=== PATIENT | male | born 1985 | race American Indian/Alaskan Native ===

== ENCOUNTER 2017-11-01 00:52 | Inpatient (IN) | payer SELFPAY ==
[2017-11-01 01:39] LABS: Hematocrit 44.8 % (35.5-45.6); Hemoglobin 14.7 gm/dl (11.8-15.2); Mean Corpuscular HGB Conc 33 % (32-34); Mean Corpuscular Hemoglobin 32 pg (28-32); Mean Corpuscular Volume 98 fl (84-94); Platelet Count 234 K/mm3 (140-440); Red Blood Count 4.59 M/mm3 (3.65-5.03); Red Cell Distribution Width 12.7 % (13.2-15.2)
[2017-11-01 01:43] LABS: White Blood Count 21.3 K/mm3 (4.5-11.0)
[2017-11-01 01:47] LABS: Chloride 90.1 mmol/L (98-107); Potassium 5.4 mmol/L (3.6-5.0)
[2017-11-01 02:19] LABS: Basophils % (Manual) 0 % (0.0-1.8); Blastocytes % (Manual) 0 %; Diff Status Complete; Eosinophils % (Manual) 0 % (0.0-4.3); Macrocytosis Few; Platelet Estimate Consistent w Auto
[2017-11-01] MEDS ORDERED: NACL 0.9% 1000 ML 1,000 ML ONE (02:25)
[2017-11-01] MEDS ORDERED: NACL 0.9% 1000 ML 1,000 ML IV ONE ×2 (02:31→03:09)
[2017-11-01] MEDS ORDERED: D50W (25GM) Syringe IV PRN (03:09)
[2017-11-01] MEDS ORDERED: REGLAN ONE (03:11)
[2017-11-01 03:14] LABS: Bilirubin,Urine NEG (Negative); Blood,Urine NEG (Negative); Ketones,Urine 80 mg/dL (Negative); Leukocyte Esterase,Urine NEG (Negative); Mucus,Urine FEW /HPF; Nitrite,Urine NEG (Negative); Protein,Urine <15 mg/dL mg/dL (Negative); RBC,Urine < 1.0 /HPF (0.0-6.0); Urobilinogen,Urine < 2.0 mg/dL (<2.0); WBC,Urine < 1.0 /HPF (0.0-6.0)
--- NOTE | 2017-11-01 03:17 | Emergency Department Report ---
ED General Adult HPI - General Chief complaint: Hyperglycemia Stated complaint: CHEST PAIN / HIGH BLOOD SUGAR Time Seen by Provider: 11/01/17 03:04 Source: patient Mode of arrival: Ambulatory Limitations: No Limitations - History of Present Illness Initial comments: Patient is 32 years old male history of insulin-dependent diabetes presented today with hyperglycemia nausea and vomiting patient stated that he ran out of his insulin yesterday. He also complaining of chest pain and left-sided. He denied any shortness of breath or cough. No abdominal pain, no diarrhea. Patient denied any urinary symptoms. -: Gradual Consistency: constant - Related Data Allergies Allergy/AdvReac Type Severity Reaction Status Date / Time No Known Allergies Allergy Verified 11/01/17 01:05 ED Review of Systems ROS: Stated complaint: CHEST PAIN / HIGH BLOOD SUGAR Other details as noted in HPI Comment: All other systems reviewed and negative Constitutional: denies: chills, fever ENT: denies: ear pain, throat pain, dental pain, hearing loss Respiratory: denies: cough, orthopnea, shortness of breath, SOB with exertion, SOB at rest Cardiovascular: chest pain. denies: palpitations, dyspnea on exertion, orthopnea, edema, syncope, paroxysmal nocturnal dyspnea Gastrointestinal: nausea, vomiting. denies: abdominal pain, diarrhea, constipation, hematemesis, melena Genitourinary: denies: urgency, dysuria, hematuria Musculoskeletal: denies: back pain, joint swelling Neurological: denies: headache, weakness, numbness ED Past Medical Hx - Past Medical History Previous Medical History?: Yes Hx Diabetes: Yes - Surgical History Past Surgical History?: No - Social History Smoking Status: Never Smoker Substance Use Type: None ED Physical Exam - General Limitations: No Limitations General appearance: alert, in no apparent distress, other (patient is actively vomiting) - Head Head exam: Present: atraumatic, normocephalic, normal inspection - Eye Eye exam: Present: normal appearance, PERRL - ENT ENT exam: Present: mucous membranes dry - Neck Neck exam: Present: normal inspection, full ROM. Absent: tenderness, meningismus, lymphadenopathy, thyromegaly - Respiratory Respiratory exam: Present: normal lung sounds bilaterally. Absent: respiratory distress, wheezes, rales, rhonchi, stridor, chest wall tenderness, accessory muscle use, decreased breath sounds, prolonged expiratory - Cardiovascular Cardiovascular Exam: Present: tachycardia, normal heart sounds - GI/Abdominal GI/Abdominal exam: Present: soft, normal bowel sounds. Absent: distended, tenderness, guarding, rebound, rigid, organomegaly, mass, bruit, pulsatile mass , hernia - Back Exam Back exam: Present: normal inspection. Absent: tenderness, CVA tenderness (R), CVA tenderness (L) - Neurological Exam Neurological exam: Present: alert, oriented X3, CN II-XII intact, normal gait, reflexes normal - Skin Skin exam: Present: warm, dry, intact ED Course Vital Signs 11/01/17 11/01/17 11/01/17 00:56 01:00 01:48 Temperature 98.3 F 98.3 F 98.8 F Pulse Rate 109 H 108 H 98 H Respiratory 20 20 16 Rate Blood Pressure 115/86 115/86 Blood Pressure 134/77 [Left] O2 Sat by Pulse 100 97 99 Oximetry 11/01/17 11/01/17 11/01/17 02:00 02:15 02:31 Temperature Pulse Rate 101 H 87 108 H Respiratory 17 18 19 Rate Blood Pressure 121/75 134/77 140/68 Blood Pressure [Left] O2 Sat by Pulse 98 100 Oximetry 11/01/17 11/01/17 11/01/17 02:45 03:00 03:15 Temperature Pulse Rate 101 H 100 H 105 H Respiratory 18 18 16 Rate Blood Pressure 140/68 123/69 123/69 Blood Pressure [Left] O2 Sat by Pulse 100 100 100 Oximetry 11/01/17 11/01/17 11/01/17 03:31 03:45 04:00 Temperature Pulse Rate 112 H 111 H 105 H Respiratory 22 20 16 Rate Blood Pressure 123/69 123/69 124/61 Blood Pressure [Left] O2 Sat by Pulse 99 100 100 Oximetry 11/01/17 11/01/17 11/01/17 04:15 04:30 04:31 Temperature Pulse Rate 108 H 104 H Respiratory 15 20 17 Rate Blood Pressure 124/61 124/61 Blood Pressure [Left] O2 Sat by Pulse 100 100 99 Oximetry ED Medical Decision Making - Lab Data Result diagrams: 11/01/17 01:19 11/01/17 01:19 - EKG Data -: EKG Interpreted by Mi EKG shows normal: sinus rhythm Rate: tachycardia - EKG Data Interpretation: no acute changes - Radiology Data Radiology results: report reviewed Chest x-ray showed no acute finding. - Medical Decision Making Discussed with Dr. Janice Cole, I presented the patient to her, she agreed to admit the patient to her service. Critical Care Time: Yes Critical care time in (mins) excluding proc time.: 45 Critical care attestation.: If time is entered above; I have spent that time in minutes in the direct care of this critically ill patient, excluding procedure time. ED Disposition Clinical Impression: DKA, type 1, Intractable vomiting, Chest pain Disposition: OP ADMIT IP TO THIS HOSP Is pt being admited?: Yes Condition: Stable Instructions: Diabetic Ketoacidosis (ED), Chest Pain (ED)
[2017-11-01] MEDS ORDERED: REGLAN IV ONE (03:19)
[2017-11-01] MEDS ORDERED: ZOSYN/NS 4.5GM/100ML 4.5 GM/100 ML VIAL IV ONE (03:30)
[2017-11-01] MEDS: NovoLIN R 100 UNITS in NACL 0.9% 99 ML IV SCH (03:52)
--- NOTE | 2017-11-01 04:20 | XRay Report ---
FINAL REPORT PROCEDURE: XR CHEST 1V AP TECHNIQUE: Chest radiograph anteroposterior view. CPT 22552 HISTORY: chest pain COMPARISON: No prior studies are available for comparison. FINDINGS: Heart: Normal. Mediastinum/Vessels: Normal. Lungs/Pleural space: Lungs are clear and expanded. There are no infiltrates, effusions or pneumothoraces.. Bony thorax: No acute osseous abnormality. Life support devices: None. IMPRESSION: No acute cardiopulmonary abnormality.
[2017-11-01] MEDS ORDERED: ZOFRAN IV PRN (05:34)
[2017-11-01] MEDS ORDERED: TYLENOL PO PRN (05:34)
[2017-11-01] MEDS ORDERED: MILK OF MAGNESIA PO PRN (05:34)
[2017-11-01] MEDS ORDERED: DULCOLAX PR PRN (05:34)
--- NOTE | 2017-11-01 05:43 | History and Physical Report ---
History of Present Illness Date of examination: 11/01/17 History of present illness: 32 year old man with history of diabetes comes to emergency room with complaints of nausea, vomiting, generalized weakness. He ran out of his insulin. Also complaining of abdominal pain, lower quadrants, tightness, intermittent every 100 minutes, intensity 5/10, no radiation,cannot identidfy relieving or exacerbating factors. Review Of Systems: Constitutional: no weight loss Ears, eyes, nose, mouth and throat: no nasal congestion, no nasal discharge, no sinus pressure, blurry vision, diplopia Neck: No neck pain or rigidity. Cardiovascular: No chest pain, palpitations Respiratory: No shortness of breath, cough Gastrointestinal: No hematochezia Genitourinary : no dysuria, frequency , hematuria Musculoskeletal: no muscle ache Integumentary: no rash, no pruritis Neurological: no parathesias, focal weakness Endocrine: no cold or heat intolerance, no polyuria or polydipsia Hematologic/Lymphatic: no easy bruising, no easy bleeding, no gland swelling Allergic/Immunologic: no urticaria, no angioedema. PAST MEDICAL HISTORY: Diabetes PAST SURGICAL HISTORY: none FAMILY HISTORY:diabetes SOCIAL HISTORY:no alcohol, tobacco, alcohol or drugs Medications and Allergies Allergies Allergy/AdvReac Type Severity Reaction Status Date / Time No Known Allergies Allergy Verified 11/01/17 01:05 Home Medications Medication Instructions Recorded Confirmed Last Taken Type Insulin Aspart [NovoLOG Flexpen] 1 dose SQ AC PRN #1 pen 11/05/17 Unknown Rx Insulin Detemir [Levemir] 8 units SUB-Q QHS #30 day 11/05/17 Unknown Rx Active Meds: Active Medications Acetaminophen (Tylenol) 650 mg PO Q4H PRN PRN Reason: Pain MILD(1-3)/Fever >100.5/[place]ACKSON Bisacodyl (Dulcolax) 10 mg MA QDAY PRN PRN Reason: Constipation unrelieved by MOM Dextrose (D50w (25gm) Syringe) 0 ml IV PRN PRN PRN Reason: Hypoglycemia Enoxaparin Sodium (Lovenox) 30 mg SUB-Q QDAY JULIOCESAR Insulin Human Regular 100 (units/ Sodium Chloride) 100 mls @ 1 mls/hr IV TITR JULIOCESAR; 1 UNITS/HR PRN Reason: Protocol Last Titration: 11/01/17 04:58 Dose: 8 units/hr, 8 mls/hr Dextrose/Sodium Chloride (D5/0.45ns) 1,000 mls @ 150 mls/hr IV DIRECT JULIOCESAR Sodium Chloride (Nacl 0.9% 1000 Ml) 1,000 mls @ 150 mls/hr IV DIRECT JULIOCES[facility] Magnesium Hydroxide (Milk Of Magnesia) 30 ml PO Q4H PRN PRN Reason: Constipation Ondansetron HCl (Zofran) 4 mg IV Q4H PRN PRN Reason: N/V unrelieved by Reglan Exam - Physical Exam Narrative exam: Gen. appearance: Patient lying in bed in no acute distress HEENT: Normocephalic/atraumatic, pupils equal round reactive to light, extra occular movement intact, no scleral icterus, no JVD or thyromegaly or nodule, neck is supple, mucous membrane moist, no erythema or exudate Heart: S1-S2, regular rate and rhythm Lungs: Clear to auscultation bilateral breathing comfortable Abdomen: Positive bowel sounds, nontender, nondistended, no organomegaly Extremities: No edema, cyanosis, clubbing Neuro:: Oriented 3 , cranial nerves II-12 intact, speech, motor intact Skin: No rash, nodules, warm dry - Constitutional Vitals: Temp Pulse Resp BP Pulse Ox 98.8 F 104 H 17 124/61 99 11/01/17 01:48 11/01/17 04:31 11/01/17 04:31 11/01/17 04:31 11/01/17 04:31 Results - Labs CBC & Chem 7: 11/05/17 04:12 11/05/17 04:12 Labs: Abnormal lab results 11/01/17 11/01/17 11/01/17 Range/Units 01:07 01:19 01:19 WBC 21.3 H (4.5-11.0) K/mm3 MCV 98 H (84-94) fl RDW 12.7 L (13.2-15.2) % Seg Neuts % (Manual) 88.0 H (40.0-70.0) % Lymphocytes % (Manual) 7.0 L (13.4-35.0) % Seg Neutrophils # Man 18.7 H (1.8-7.7) K/mm3 Monocytes # (Manual) 1.1 H (0.0-0.8) K/mm3 VBG pH (7.320-7.420) Potassium 5.4 H (3.6-5.0) mmol/L Chloride 90.1 L (98-107) mmol/L Carbon Dioxide 10 L (22-30) mmol/L BUN 24 H (9-20) mg/dL Creatinine 1.6 H (0.8-1.5) mg/dL Glucose 494 H (75-100) mg/dL POC Glucose 425 H (70-105) 11/01/17 11/01/17 Range/Units 01:19 02:19 WBC (4.5-11.0) K/mm3 MCV (84-94) fl RDW (13.2-15.2) % Seg Neuts % (Manual) (40.0-70.0) % Lymphocytes % (Manual) (13.4-35.0) % Seg Neutrophils # Man (1.8-7.7) K/mm3 Monocytes # (Manual) (0.0-0.8) K/mm3 VBG pH 7.230 L (7.320-7.420) Potassium (3.6-5.0) mmol/L Chloride (98-107) mmol/L Carbon Dioxide (22-30) mmol/L BUN (9-20) mg/dL Creatinine (0.8-1.5) mg/dL Glucose (75-100) mg/dL POC Glucose 458 H (70-105) - Imaging and Cardiology Chest x-ray: image reviewed Assessment and Plan Assessment DKA Abdominal pain SIRS Dehydration Plan Admit to medicine Start IV fluids, insulin drip check fingersticks, serial chemistry Check CT abdomen, consult critical care DVT prophalaxis
[2017-11-01 05:57] LABS: Calcium 8.9 mg/dL (8.4-10.2); Chloride 96.4 mmol/L (98-107); Magnesium 2.1 mg/dL (1.7-2.3); Phosphorous 5.1 mg/dL (2.5-4.5)
[2017-11-01] MEDS ORDERED: D5/0.45NS 1,000 ML IV SCH (06:00)
[2017-11-01] MEDS ORDERED: NACL 0.9% 1000 ML 1,000 ML IV SCH (06:00)
[2017-11-01 06:24] LABS: Potassium 6.4 mmol/L (3.6-5.0)
[2017-11-01] MEDS ORDERED: SODIUM BICARBONATE IV ONE ×2 (06:29→06:31)
[2017-11-01] MEDS ORDERED: CALCIUM CHLORIDE 1,000 MG in NACL 0.9% 100 ML IV ONE (06:29)
--- NOTE | 2017-11-01 06:36 | Cat Scan Report ---
FINAL REPORT PROCEDURE: CT ABDOMEN PELVIS WO CON TECHNIQUE: Computerized axial tomography of the abdomen and pelvis was performed without intravenous contrast. This study is performed without intravascular contrast material and its sensitivity for abdominal and pelvic pathology, including neoplasms, inflammation, abscess, free fluid, thrombosis, arterial dissection and infarction, is reduced compared with a contrast enhanced study. HISTORY: abd pain COMPARISON: No prior studies are available for comparison. FINDINGS: Visualized lower thorax: No significant abnormality. Liver: Normal size and attenuation. Spleen: Normal size and attenuation. Gallbladder and biliary system: Normal. Pancreas: Normal. Adrenals: Normal. Kidneys: There are no kidney stones or ureteral stones. There is no hydronephrosis.. GI tract: There is no bowel obstruction, colitis or enteritis. The appendix is normal.. Lymph nodes and mesentery: Normal. Vasculature: Normal. Bladder: Normal. Reproductive organs: Normal. Peritoneum: There is no ascites, free air, abscess or adenopathy.. Musculoskeletal structures: No significant abnormality. Other: None. IMPRESSION: There is no acute intra-abdominal abnormality..
[2017-11-01 08:13] LABS: BUN/Creatinine Ratio 16; Blood Urea Nitrogen 26 mg/dL (9-20); Calcium 8.7 mg/dL (8.4-10.2); Chloride 103.6 mmol/L (98-107); Glucose 285 mg/dL (75-100); Potassium 4.8 mmol/L (3.6-5.0); Sodium 146 mmol/L (137-145)
[2017-11-01 08:26] LABS: Anion Gap 30 mmol/L; Carbon Dioxide 17 mmol/L (22-30)
[2017-11-01 09:47] LABS: Anion Gap 28 mmol/L; BUN/Creatinine Ratio 16; Blood Urea Nitrogen 25 mg/dL (9-20); Calcium 9.5 mg/dL (8.4-10.2); Carbon Dioxide 17 mmol/L (22-30); Chloride 105.1 mmol/L (98-107); Glucose 243 mg/dL (75-100); Potassium 4.5 mmol/L (3.6-5.0); Sodium 146 mmol/L (137-145)
[2017-11-01] MEDS: LOVENOX SUB-Q SCH (10:15)
[2017-11-01] MEDS: NACL 0.45% 1000 ML 1,000 ML IV SCH (12:15)
[2017-11-01 12:49] LABS: Anion Gap 33 mmol/L; BUN/Creatinine Ratio 16; Blood Urea Nitrogen 25 mg/dL (9-20); Calcium 9.6 mg/dL (8.4-10.2); Carbon Dioxide 16 mmol/L (22-30); Chloride 103.1 mmol/L (98-107); Glucose 220 mg/dL (75-100); Potassium 4.7 mmol/L (3.6-5.0); Sodium 147 mmol/L (137-145)
[2017-11-01] MEDS: NOVOLOG SUB-Q SCH (16:50)
--- NOTE | 2017-11-01 17:01 | Progress Note ---
Assessment and Plan Assessment and plan: 32-year-old male with past medical history of diabetes. As per his he has been acting strange recently. He has been secretive, paranoid and appears to be delusional. For one he told that he fills his insulin [id number] at [facility]. He has been using insulin. When his checked his insulin and it was an empty bottle. His is a chiropractor and she is aware that it is not Possible to get insulin without a Rx. He Claims Has Not Seen a Doctor for a Long Time and Does Not Have Any Prescriptions. . He Then Says He Is on a Holy mission, and Refusing to Eat, and God Has Been Telling Him Not to Eat, He Will Only Eat after the Voice from God Has tells Him to Do so. His States That He Has No Real Mental Health History , but that Mental Health Issues Run Strongly in His Family. Especially His Mother. Psychotic Episode 1013 and mental health consults Acute kidney injury/vasomotor nephropathy Continue IV fluids, should improve with insulin and IV fluids. DKA Continue insulin drip, keep in ICU, we'll not transitioned to subcutaneous until patient is able to eat. Metabolic Acidosis Due to DKA and starvation ketoacidosis and LA Hypernatremia continue 1/2NS Dehydration cotninue IVF Mixed Acidosis also due to Lactic acidosis infection workup is negative, continue IVF Metabolic encephalopathy Was due to DKA, appears to be resolving now. Now patient appears to be quite psychotic. He is threatening to sign out AMA leave the hospital. Therefore put him on 1013. The high probability of a clinically significant, sudden or life threatening deterioration of the [endocrine, renal ] system(s) required my full and direct attention, intervention and personal management. The aggregate critical care time was [] minutes. This time is in addition to time spent performing reported procedures but includes the following: [] Data Review and interpretation [] Patient assessment and monitoring of vital signs [] Documentation [] Medication orders and management History Interval history: Patient refusing to eat, he is erratic, delusional and paranoid. Per the patient as he feels perfectly fine. And he states he will not answer to sinus answering only to a higher power Constitutional: No fevers, no malaise, no joint pains CVS: No chest pain, no orthopnea, no dyspnea on exertion, no pedal edema GI: No abdominal pain, no diarrhea, no vomiting, no constipation Respiratory: No shortness of breath, no wheezing, no coughing Hospitalist Physical - Constitutional Vitals: Temp Pulse Resp BP Pulse Ox 97.4 F L 97 H 14 121/64 95 11/01/17 08:11 11/01/17 12:00 11/01/17 12:00 11/01/17 12:00 11/01/17 12:00 General appearance: Present: no acute distress - EENT Eyes: Present: PERRL, EOM intact ENT: hearing intact, clear oral mucosa - Neck Neck: Present: supple, normal ROM - Respiratory Respiratory effort: normal Respiratory: bilateral: CTA - Cardiovascular Rhythm: regular Heart Sounds: Present: S1 & S2 - Extremities Extremities: no ischemia Peripheral Pulses: within normal limits - Abdominal General gastrointestinal: soft, non-tender, normal bowel sounds - Integumentary Integumentary: Present: clear, warm, dry - Psychiatric Psychiatric: no appropriate mood/affect, no intact judgment & insight, other ( disorganized speech and behavior) - Neurologic Neurologic: CNII-XII intact, focal deficits Results - Labs CBC & Chem 7: 11/01/17 01:19 11/01/17 11:12 Labs: Laboratory Last Values WBC 21.3 K/mm3 (4.5-11.0) H 11/01/17 01:19 RBC 4.59 M/mm3 (3.65-5.03) 11/01/17 01:19 Hgb 14.7 gm/dl (11.8-15.2) 11/01/17 01:19 Hct 44.8 % (35.5-45.6) 11/01/17 01:19 MCV 98 fl (84-94) H 11/01/17 01:19 MCH 32 pg (28-32) 11/01/17 01:19 MCHC 33 % (32-34) 11/01/17 01:19 RDW 12.7 % (13.2-15.2) L 11/01/17 01:19 Plt Count 234 K/mm3 (140-440) 11/01/17 01:19 Add Manual Diff Complete 11/01/17 01:19 Total Counted 100 11/01/17 01:19 Seg Neuts % (Manual) 88.0 % (40.0-70.0) H 11/01/17 01:19 Band Neutrophils % 0 % 11/01/17 01:19 Lymphocytes % (Manual) 7.0 % (13.4-35.0) L 11/01/17 01:19 Reactive Lymphs % (Man) 0 % 11/01/17 01:19 Monocytes % (Manual) 5.0 % (0.0-7.3) 11/01/17 01:19 Eosinophils % (Manual) 0 % (0.0-4.3) 11/01/17 01:19 Basophils % (Manual) 0 % (0.0-1.8) 11/01/17 01:19 Metamyelocytes % 0 % 11/01/17 01:19 Myelocytes % 0 % 11/01/17 01:19 Promyelocytes % 0 % 11/01/17 01:19 Blast Cells % 0 % 11/01/17 01:19 Nucleated RBC % Not Reportable 11/01/17 01:19 Seg Neutrophils # Man 18.7 K/mm3 (1.8-7.7) H 11/01/17 01:19 Band Neutrophils # 0.0 K/mm3 11/01/17 01:19 Lymphocytes # (Manual) 1.5 K/mm3 (1.2-5.4) 11/01/17 01:19 Abs React Lymphs (Man) 0.0 K/mm3 11/01/17 01:19 Monocytes # (Manual) 1.1 K/mm3 (0.0-0.8) H 11/01/17 01:19 Eosinophils # (Manual) 0.0 K/mm3 (0.0-0.4) 11/01/17 01:19 Basophils # (Manual) 0.0 K/mm3 (0.0-0.1) 11/01/17 01:19 Metamyelocytes # 0.0 K/mm3 11/01/17 01:19 Myelocytes # 0.0 K/mm3 11/01/17 01:19 Promyelocytes # 0.0 K/mm3 11/01/17 01:19 Blast Cells # 0.0 K/mm3 11/01/17 01:19 WBC Morphology Not Reportable 11/01/17 01:19 Hypersegmented Neuts Not Reportable 11/01/17 01:19 Hyposegmented Neuts Not Reportable 11/01/17 01:19 Hypogranular Neuts Not Reportable 11/01/17 01:19 Smudge Cells Not Reportable 11/01/17 01:19 Toxic Granulation Not Reportable 11/01/17 01:19 Toxic Vacuolation Not Reportable 11/01/17 01:19 Dohle Bodies Not Reportable 11/01/17 01:19 Pelger-Huet Anomaly Not Reportable 11/01/17 01:19 Rick Rods Not Reportable 11/01/17 01:19 Platelet Estimate Consistent w auto 11/01/17 01:19 Clumped Platelets Not Reportable 11/01/17 01:19 Plt Clumps, EDTA Not Reportable 11/01/17 01:19 Large Platelets Not Reportable 11/01/17 01:19 Giant Platelets Not Reportable 11/01/17 01:19 Platelet Satelliting Not Reportable 11/01/17 01:19 Plt Morphology Comment Not Reportable 11/01/17 01:19 RBC Morphology Not Reportable 11/01/17 01:19 Dimorphic RBCs Not Reportable 11/01/17 01:19 Polychromasia Not Reportable 11/01/17 01:19 Hypochromasia Not Reportable 11/01/17 01:19 Poikilocytosis Not Reportable 11/01/17 01:19 Anisocytosis Not Reportable 11/01/17 01:19 Microcytosis Not Reportable 11/01/17 01:19 Macrocytosis Few 11/01/17 01:19 Spherocytes Not Reportable 11/01/17 01:19 Pappenheimer Bodies Not Reportable 11/01/17 01:19 Sickle Cells Not Reportable 11/01/17 01:19 Target Cells Not Reportable 11/01/17 01:19 Tear Drop Cells Not Reportable 11/01/17 01:19 Ovalocytes Not Reportable 11/01/17 01:19 Helmet Cells Not Reportable 11/01/17 01:19 [place] Bodies Not Reportable 11/01/17 01:19 [place] Rings Not Reportable 11/01/17 01:19 [place] Cells Not Reportable 11/01/17 01:19 Bite Cells Not Reportable 11/01/17 01:19 Crenated Cell Not Reportable 11/01/17 01:19 Elliptocytes Not Reportable 11/01/17 01:19 Acanthocytes (Spur) Not Reportable 11/01/17 01:19 Rouleaux Not Reportable 11/01/17 01:19 Hemoglobin C Crystals Not Reportable 11/01/17 01:19 Schistocytes Not Reportable 11/01/17 01:19 Malaria parasites Not Reportable 11/01/17 01:19 Gaurang Bodies Not Reportable 11/01/17 01:19 Hem Pathologist Commnt No 11/01/17 01:19 VBG pH 7.230 (7.320-7.420) L 11/01/17 01:19 Sodium 147 mmol/L (137-145) H 11/01/17 11:12 Potassium 4.7 mmol/L (3.6-5.0) 11/01/17 11:12 Chloride 103.1 mmol/L (98-107) 11/01/17 11:12 Carbon Dioxide 16 mmol/L (22-30) L 11/01/17 11:12 Anion Gap 33 mmol/L 11/01/17 11:12 BUN 25 mg/dL (9-20) H 11/01/17 11:12 Creatinine 1.6 mg/dL (0.8-1.5) H 11/01/17 11:12 Estimated GFR > 60 ml/min 11/01/17 11:12 BUN/Creatinine Ratio 16 % 11/01/17 11:12 Glucose 220 mg/dL (75-100) H 11/01/17 11:12 POC Glucose 159 (70-105) H 11/01/17 15:59 Hemoglobin A1c 9.0 % (4-6) H 11/01/17 07:26 Lactic Acid 3.90 mmol/L (0.7-2.0) H* 11/01/17 05:05 Calcium 9.6 mg/dL (8.4-10.2) 11/01/17 11:12 Phosphorus 5.10 mg/dL (2.5-4.5) H 11/01/17 05:05 Magnesium 2.10 mg/dL (1.7-2.3) 11/01/17 05:05 Troponin T < 0.010 ng/mL (0.00-0.029) 11/01/17 05:05 Urine Color Straw (Yellow) 11/01/17 02:50 Urine Turbidity Clear (Clear) 11/01/17 02:50 Urine pH 5.0 (5.0-7.0) 11/01/17 02:50 Ur Specific [place] 1.013 (1.003-1.030) 11/01/17 02:50 Urine Protein <15 mg/dl mg/dL (Negative) 11/01/17 02:50 Urine Glucose (UA) >=500 mg/dL (Negative) 11/01/17 02:50 Urine Ketones 80 mg/dL (Negative) 11/01/17 02:50 Urine Blood Neg (Negative) 11/01/17 02:50 Urine Nitrite Neg (Negative) 11/01/17 02:50 Urine Bilirubin Neg (Negative) 11/01/17 02:50 Urine Urobilinogen < 2.0 mg/dL (<2.0) 11/01/17 02:50 Ur Leukocyte Esterase Neg (Negative) 11/01/17 02:50 Urine WBC (Auto) < 1.0 /HPF (0.0-6.0) 11/01/17 02:50 Urine RBC (Auto) < 1.0 /HPF (0.0-6.0) 11/01/17 02:50 Urine Mucus Few /HPF 11/01/17 02:50
[2017-11-01] MEDS ORDERED: NOVOLOG SUB-Q SCH (22:00)
[2017-11-01 23:57] LABS: BUN/Creatinine Ratio 13; Blood Urea Nitrogen 17 mg/dL (9-20); Carbon Dioxide 23 mmol/L (22-30); Chloride 103.3 mmol/L (98-107); Glucose 91 mg/dL (75-100); Potassium 3.8 mmol/L (3.6-5.0); Sodium 141 mmol/L (137-145)
[2017-11-02 00:04] LABS: Anion Gap 19 mmol/L
[2017-11-02 04:29] LABS: Anion Gap 27 mmol/L; BUN/Creatinine Ratio 11; Blood Urea Nitrogen 16 mg/dL (9-20); Calcium 8.9 mg/dL (8.4-10.2); Carbon Dioxide 18 mmol/L (22-30); Chloride 101.5 mmol/L (98-107); Glucose 199 mg/dL (75-100); Potassium 4.4 mmol/L (3.6-5.0); Sodium 142 mmol/L (137-145)
[2017-11-02] MEDS: NOVOLOG SUB-Q SCH (08:36)
[2017-11-02] MEDS: NACL 0.45% 1000 ML 1,000 ML IV SCH (09:23)
[2017-11-02] MEDS: LOVENOX SUB-Q SCH (09:24)
--- NOTE | 2017-11-02 11:17 | Consultation ---
History of Present Illness - Reason for Consult Consult date: 11/02/17 DKA Requesting physician: BARBARA WALSH - History of Present Illness 32 y/o male admitted with nausea and vomiting found to be in DKA. Past History Past Medical History: diabetes Past Surgical History: No surgical history Social history: no significant social history Medications and Allergies Allergies Allergy/AdvReac Type Severity Reaction Status Date / Time No Known Allergies Allergy Verified 11/01/17 01:05 Home Medications Medication Instructions Recorded Confirmed Last Taken Type No Known Home Medications [No 11/01/17 11/01/17 Unknown History Reported Home Medications] Active Meds: Active Medications Acetaminophen (Tylenol) 650 mg PO Q4H PRN PRN Reason: Pain MILD(1-3)/Fever >100.5/JACKSON Bisacodyl (Dulcolax) 10 mg [place] QDAY PRN PRN Reason: Constipation unrelieved by MOM Dextrose (D50w (25gm) Syringe) 0 ml IV PRN PRN PRN Reason: Hypoglycemia Enoxaparin Sodium (Lovenox) 40 mg SUB-Q QDAY [facility] Last Admin: 11/02/17 09:24 Dose: 40 mg Dextrose (D5w) 1,000 mls @ 125 mls/hr IV DIRECT [facility] Influenza Virus Vaccine Quadrival (Fluarix Quad [id number](36 Mos+) 0.5 ml IM .ONCE ONE Stop: 11/02/17 12:01 Magnesium Hydroxide (Milk Of Magnesia) 30 ml PO Q4H PRN PRN Reason: Constipation Ondansetron HCl (Zofran) 4 mg IV Q4H PRN PRN Reason: N/V unrelieved by Reglan Review of Systems All systems: negative Exam - Constitutional Vitals: Temp Pulse Resp BP Pulse Ox 98.6 F 108 H 13 110/57 96 11/02/17 00:00 11/02/17 09:00 11/02/17 09:00 11/02/17 09:00 11/02/17 09:00 General appearance: Present: no acute distress - EENT Eyes: Present: PERRL, EOM intact ENT: hearing intact, clear oral mucosa - Neck Neck: Present: supple, normal ROM - Respiratory Respiratory effort: normal Respiratory: bilateral: CTA - Cardiovascular Rhythm: regular (tachycardic) Heart Sounds: Present: S1 & S2 - Extremities Extremities: no ischemia Peripheral Pulses: within normal limits - Abdominal General gastrointestinal: Present: soft, non-tender, normal bowel sounds Results - Labs CBC & Chem 7: 11/03/17 04:14 11/03/17 04:14 Labs: Abnormal lab results 11/01/17 11/01/17 11/01/17 Range/Units 11:10 11:12 11:44 Sodium 147 H (137-145) mmol/L Carbon Dioxide 16 L (22-30) mmol/L BUN 25 H (9-20) mg/dL Creatinine 1.6 H (0.8-1.5) mg/dL Glucose 220 H (75-100) mg/dL POC Glucose 193 H 191 H (70-105) 11/01/17 11/01/17 11/01/17 Range/Units 12:51 13:45 14:58 Sodium (137-145) mmol/L Carbon Dioxide (22-30) mmol/L BUN (9-20) mg/dL Creatinine (0.8-1.5) mg/dL Glucose (75-100) mg/dL POC Glucose 196 H 231 H 210 H (70-105) 11/01/17 11/01/17 11/01/17 Range/Units 15:59 17:55 19:15 Sodium (137-145) mmol/L Carbon Dioxide (22-30) mmol/L BUN (9-20) mg/dL Creatinine (0.8-1.5) mg/dL Glucose (75-100) mg/dL POC Glucose 159 H 127 H 129 H (70-105) 11/01/17 11/02/17 11/02/17 Range/Units 21:15 00:02 01:17 Sodium (137-145) mmol/L Carbon Dioxide (22-30) mmol/L BUN (9-20) mg/dL Creatinine (0.8-1.5) mg/dL Glucose (75-100) mg/dL POC Glucose 150 H 62 L 125 H (70-105) 11/02/17 11/02/17 11/02/17 Range/Units 03:07 03:21 04:05 Sodium (137-145) mmol/L Carbon Dioxide 18 L (22-30) mmol/L BUN (9-20) mg/dL Creatinine (0.8-1.5) mg/dL Glucose 199 H (75-100) mg/dL POC Glucose 171 H 226 H (70-105) 11/02/17 11/02/17 Range/Units 06:15 07:39 Sodium (137-145) mmol/L Carbon Dioxide (22-30) mmol/L BUN (9-20) mg/dL Creatinine (0.8-1.5) mg/dL Glucose (75-100) mg/dL POC Glucose 217 H 276 H (70-105) - Imaging and Cardiology Chest x-ray: image reviewed (clear) Assessment and Plan 32 y/o male with DKA, secondary to noncompliance 1. NPO 2. Insulin drip 3. Q1hr FSBS 4. Q6hour BMP's CCT 31 minutes.
[2017-11-02] MEDS: D5W 1,000 ML IV SCH (11:19)
[2017-11-02] MEDS: NovoLIN R 100 UNITS in NACL 0.9% 99 ML IV SCH (11:25)
[2017-11-02 11:37] LABS: Anion Gap 30 mmol/L; BUN/Creatinine Ratio 11; Blood Urea Nitrogen 17 mg/dL (9-20); Calcium 8.4 mg/dL (8.4-10.2); Carbon Dioxide 15 mmol/L (22-30); Chloride 98.4 mmol/L (98-107); Glucose 338 mg/dL (75-100); Potassium 4.4 mmol/L (3.6-5.0); Sodium 139 mmol/L (137-145)
[2017-11-02] MEDS ORDERED: Fluarix Quad 2017-2018(36 MOS+ IM ONE (12:00)
[2017-11-02] MEDS ORDERED: NovoLIN R 100 UNITS in NACL 0.9% 99 ML IV SCH (12:00)
--- NOTE | 2017-11-02 17:48 | Progress Note ---
Assessment and Plan Assessment and plan: Patient is a 32-year-old man with past medical history of DM who presents with AMS/paranoid/delusional. Psychotic Episode 1013 and mental health consults Acute kidney injury/vasomotor nephropathy Continue IV fluids, should improve with insulin and IV fluids. DKA Continue insulin drip, keep in ICU, we'll not transitioned to subcutaneous until patient is able to eat. Metabolic Acidosis Due to DKA and starvation ketoacidosis and LA Hypernatremia continue 1/2NS Dehydration cotninue IVF Mixed Acidosis also due to Lactic acidosis infection workup is negative, continue IVF Metabolic encephalopathy Was due to DKA, appears to be resolving now. Now patient appears to be quite psychotic. He is threatening to sign out AMA leave the hospital, so he was placed under 1013. unfortunately, no drug screen/toxicology screen was done on admission. The high probability of a clinically significant, sudden or life threatening deterioration of the [neurologic,cardiac] system(s) required my full and direct attention, intervention and personal management. The aggregate critical care time was [32] minutes. This time is in addition to time spent performing reported procedures but includes the following: [x] Data Review and interpretation [x] Patient assessment and monitoring of vital signs [x] Documentation [x] Medication orders and management Hospitalist Physical - Constitutional Vitals: Temp Pulse Resp BP Pulse Ox 98.6 F 84 14 103/55 99 11/02/17 00:00 11/02/17 16:00 11/02/17 16:00 11/02/17 16:00 11/02/17 16:00 General appearance: Present: no acute distress Results - Labs CBC & Chem 7: 11/01/17 01:19 11/02/17 10:57 Labs: Laboratory Last Values WBC 21.3 K/mm3 (4.5-11.0) H 11/01/17 01:19 RBC 4.59 M/mm3 (3.65-5.03) 11/01/17 01:19 Hgb 14.7 gm/dl (11.8-15.2) 11/01/17 01:19 Hct 44.8 % (35.5-45.6) 11/01/17 01:19 MCV 98 fl (84-94) H 11/01/17 01:19 MCH 32 pg (28-32) 11/01/17 01:19 MCHC 33 % (32-34) 11/01/17 01:19 RDW 12.7 % (13.2-15.2) L 11/01/17 01:19 Plt Count 234 K/mm3 (140-440) 11/01/17 01:19 Add Manual Diff Complete 11/01/17 01:19 Total Counted 100 11/01/17 01:19 Seg Neuts % (Manual) 88.0 % (40.0-70.0) H 11/01/17 01:19 Band Neutrophils % 0 % 11/01/17 01:19 Lymphocytes % (Manual) 7.0 % (13.4-35.0) L 11/01/17 01:19 Reactive Lymphs % (Man) 0 % 11/01/17 01:19 Monocytes % (Manual) 5.0 % (0.0-7.3) 11/01/17 01:19 Eosinophils % (Manual) 0 % (0.0-4.3) 11/01/17 01:19 Basophils % (Manual) 0 % (0.0-1.8) 11/01/17 01:19 Metamyelocytes % 0 % 11/01/17 01:19 Myelocytes % 0 % 11/01/17 01:19 Promyelocytes % 0 % 11/01/17 01:19 Blast Cells % 0 % 11/01/17 01:19 Nucleated RBC % Not Reportable 11/01/17 01:19 Seg Neutrophils # Man 18.7 K/mm3 (1.8-7.7) H 11/01/17 01:19 Band Neutrophils # 0.0 K/mm3 11/01/17 01:19 Lymphocytes # (Manual) 1.5 K/mm3 (1.2-5.4) 11/01/17 01:19 Abs React Lymphs (Man) 0.0 K/mm3 11/01/17 01:19 Monocytes # (Manual) 1.1 K/mm3 (0.0-0.8) H 11/01/17 01:19 Eosinophils # (Manual) 0.0 K/mm3 (0.0-0.4) 11/01/17 01:19 Basophils # (Manual) 0.0 K/mm3 (0.0-0.1) 11/01/17 01:19 Metamyelocytes # 0.0 K/mm3 11/01/17 01:19 Myelocytes # 0.0 K/mm3 11/01/17 01:19 Promyelocytes # 0.0 K/mm3 11/01/17 01:19 Blast Cells # 0.0 K/mm3 11/01/17 01:19 WBC Morphology Not Reportable 11/01/17 01:19 Hypersegmented Neuts Not Reportable 11/01/17 01:19 Hyposegmented Neuts Not Reportable 11/01/17 01:19 Hypogranular Neuts Not Reportable 11/01/17 01:19 Smudge Cells Not Reportable 11/01/17 01:19 Toxic Granulation Not Reportable 11/01/17 01:19 Toxic Vacuolation Not Reportable 11/01/17 01:19 Dohle Bodies Not Reportable 11/01/17 01:19 Pelger-Huet Anomaly Not Reportable 11/01/17 01:19 Rick Rods Not Reportable 11/01/17 01:19 Platelet Estimate Consistent w auto 11/01/17 01:19 Clumped Platelets Not Reportable 11/01/17 01:19 Plt Clumps, EDTA Not Reportable 11/01/17 01:19 Large Platelets Not Reportable 11/01/17 01:19 Giant Platelets Not Reportable 11/01/17 01:19 Platelet Satelliting Not Reportable 11/01/17 01:19 Plt Morphology Comment Not Reportable 11/01/17 01:19 RBC Morphology Not Reportable 11/01/17 01:19 Dimorphic RBCs Not Reportable 11/01/17 01:19 Polychromasia Not Reportable 11/01/17 01:19 Hypochromasia Not Reportable 11/01/17 01:19 Poikilocytosis Not Reportable 11/01/17 01:19 Anisocytosis Not Reportable 11/01/17 01:19 Microcytosis Not Reportable 11/01/17 01:19 Macrocytosis Few 11/01/17 01:19 Spherocytes Not Reportable 11/01/17 01:19 Pappenheimer Bodies Not Reportable 11/01/17 01:19 Sickle Cells Not Reportable 11/01/17 01:19 Target Cells Not Reportable 11/01/17 01:19 Tear Drop Cells Not Reportable 11/01/17 01:19 Ovalocytes Not Reportable 11/01/17 01:19 Helmet Cells Not Reportable 11/01/17 01:19 Ruiz-[place] Bodies Not Reportable 11/01/17 01:19 [place] Rings Not Reportable 11/01/17 01:19 Harvey Cells Not Reportable 11/01/17 01:19 Bite Cells Not Reportable 11/01/17 01:19 Crenated Cell Not Reportable 11/01/17 01:19 Elliptocytes Not Reportable 11/01/17 01:19 Acanthocytes (Spur) Not Reportable 11/01/17 01:19 Rouleaux Not Reportable 11/01/17 01:19 Hemoglobin C Crystals Not Reportable 11/01/17 01:19 Schistocytes Not Reportable 11/01/17 01:19 Malaria parasites Not Reportable 11/01/17 01:19 Gaurang Bodies Not Reportable 11/01/17 01:19 Hem Pathologist Commnt No 11/01/17 01:19 VBG pH 7.230 (7.320-7.420) L 11/01/17 01:19 Sodium 139 mmol/L (137-145) 11/02/17 10:57 Potassium 4.4 mmol/L (3.6-5.0) 11/02/17 10:57 Chloride 98.4 mmol/L (98-107) 11/02/17 10:57 Carbon Dioxide 15 mmol/L (22-30) L 11/02/17 10:57 Anion Gap 30 mmol/L 11/02/17 10:57 BUN 17 mg/dL (9-20) 11/02/17 10:57 Creatinine 1.5 mg/dL (0.8-1.5) 11/02/17 10:57 Estimated GFR > 60 ml/min 11/02/17 10:57 BUN/Creatinine Ratio 11 % 11/02/17 10:57 Glucose 338 mg/dL (75-100) H 11/02/17 10:57 POC Glucose 164 (70-105) H 11/02/17 16:56 Hemoglobin A1c 9.0 % (4-6) H 11/01/17 07:26 Lactic Acid 3.90 mmol/L (0.7-2.0) H* 11/01/17 05:05 Calcium 8.4 mg/dL (8.4-10.2) 11/02/17 10:57 Phosphorus 5.10 mg/dL (2.5-4.5) H 11/01/17 05:05 Magnesium 2.10 mg/dL (1.7-2.3) 11/01/17 05:05 Troponin T < 0.010 ng/mL (0.00-0.029) 11/01/17 05:05 Urine Color Straw (Yellow) 11/01/17 02:50 Urine Turbidity Clear (Clear) 11/01/17 02:50 Urine pH 5.0 (5.0-7.0) 11/01/17 02:50 Ur Specific [place] 1.013 (1.003-1.030) 11/01/17 02:50 Urine Protein <15 mg/dl mg/dL (Negative) 11/01/17 02:50 Urine Glucose (UA) >=500 mg/dL (Negative) 11/01/17 02:50 Urine Ketones 80 mg/dL (Negative) 11/01/17 02:50 Urine Blood Neg (Negative) 11/01/17 02:50 Urine Nitrite Neg (Negative) 11/01/17 02:50 Urine Bilirubin Neg (Negative) 11/01/17 02:50 Urine Urobilinogen < 2.0 mg/dL (<2.0) 11/01/17 02:50 Ur Leukocyte Esterase Neg (Negative) 11/01/17 02:50 Urine WBC (Auto) < 1.0 /HPF (0.0-6.0) 11/01/17 02:50 Urine RBC (Auto) < 1.0 /HPF (0.0-6.0) 11/01/17 02:50 Urine Mucus Few /HPF 11/01/17 02:50
[2017-11-02 23:44] LABS: Anion Gap 23 mmol/L; BUN/Creatinine Ratio 8; Blood Urea Nitrogen 10 mg/dL (9-20); Calcium 8.8 mg/dL (8.4-10.2); Carbon Dioxide 21 mmol/L (22-30); Chloride 97.8 mmol/L (98-107); Glucose 174 mg/dL (75-100); Sodium 138 mmol/L (137-145)
[2017-11-03 04:41] LABS: Hematocrit 41.4 % (35.5-45.6); Hemoglobin 13.9 gm/dl (11.8-15.2); Mean Corpuscular HGB Conc 34 % (32-34); Mean Corpuscular Hemoglobin 32 pg (28-32); Mean Corpuscular Volume 96 fl (84-94); Platelet Count 198 K/mm3 (140-440); Red Blood Count 4.31 M/mm3 (3.65-5.03); White Blood Count 10.3 K/mm3 (4.5-11.0)
[2017-11-03 05:01] LABS: Anion Gap 23 mmol/L; BUN/Creatinine Ratio 9; Blood Urea Nitrogen 11 mg/dL (9-20); Calcium 8.8 mg/dL (8.4-10.2); Carbon Dioxide 22 mmol/L (22-30); Chloride 98.3 mmol/L (98-107); Glucose 147 mg/dL (75-100); Potassium 3.9 mmol/L (3.6-5.0); Sodium 139 mmol/L (137-145)
[2017-11-03] MEDS: LOVENOX SUB-Q SCH (09:13)
--- NOTE | 2017-11-03 11:04 | Progress Note ---
Assessment and Plan 32 y/o male with DKA, secondary to noncompliance 1. Calculate insulin requirement 2. Administer long acting and turn drip off 2 hours after administration 3. Feed patient 4. If tolerates transfer to floor. CCT 31 minutes. Subjective Date of service: 11/03/17 Interval history: No acute events. Anion Gap is closing. Objective - Constitutional Vitals: Vital Signs - 12hr 11/02/17 11/03/17 11/03/17 23:45 00:00 01:01 Temperature 98.9 F Pulse Rate 85 74 Pulse Rate [ 78 From Monitor] Respiratory 18 13 Rate Blood Pressure 122/70 122/70 O2 Sat by Pulse 98 97 Oximetry 11/03/17 11/03/17 11/03/17 02:00 03:00 04:00 Temperature Pulse Rate 77 75 Pulse Rate [ 72 From Monitor] Respiratory 13 15 16 Rate Blood Pressure 120/69 114/71 O2 Sat by Pulse 94 92 98 Oximetry 11/03/17 11/03/17 11/03/17 04:01 05:00 06:00 Temperature Pulse Rate 77 69 66 Pulse Rate [ From Monitor] Respiratory 11 L 14 15 Rate Blood Pressure 111/64 118/66 121/69 O2 Sat by Pulse 96 97 98 Oximetry 11/03/17 11/03/17 11/03/17 07:00 07:59 08:00 Temperature 98.4 F Pulse Rate 60 64 Pulse Rate [ 65 From Monitor] Respiratory 14 13 Rate Blood Pressure 119/76 117/71 O2 Sat by Pulse 99 98 98 Oximetry 11/03/17 09:00 Temperature Pulse Rate 62 Pulse Rate [ From Monitor] Respiratory 14 Rate Blood Pressure 124/75 O2 Sat by Pulse 98 Oximetry - Labs CBC & Chem 7: 11/03/17 04:14 11/03/17 04:14 Labs: Abnormal lab results 11/02/17 11/02/17 11/02/17 Range/Units 10:57 11:20 12:21 MCV (84-94) fl RDW (13.2-15.2) % Chloride (98-107) mmol/L Carbon Dioxide 15 L (22-30) mmol/L Glucose 338 H (75-100) mg/dL POC Glucose 257 H 246 H (70-105) 11/02/17 11/02/17 11/02/17 Range/Units 13:20 14:29 15:53 MCV (84-94) fl RDW (13.2-15.2) % Chloride (98-107) mmol/L Carbon Dioxide (22-30) mmol/L Glucose (75-100) mg/dL POC Glucose 204 H 179 H 180 H (70-105) 11/02/17 11/02/17 11/02/17 Range/Units 16:56 18:00 18:57 MCV (84-94) fl RDW (13.2-15.2) % Chloride (98-107) mmol/L Carbon Dioxide (22-30) mmol/L Glucose (75-100) mg/dL POC Glucose 164 H 168 H 153 H (70-105) 11/02/17 11/02/17 11/02/17 Range/Units 20:06 21:10 22:02 MCV (84-94) fl RDW (13.2-15.2) % Chloride (98-107) mmol/L Carbon Dioxide (22-30) mmol/L Glucose (75-100) mg/dL POC Glucose 147 H 129 H 156 H (70-105) 11/02/17 11/02/17 11/03/17 Range/Units 23:11 23:13 00:16 MCV (84-94) fl RDW (13.2-15.2) % Chloride 97.8 L (98-107) mmol/L Carbon Dioxide 21 L (22-30) mmol/L Glucose 174 H (75-100) mg/dL POC Glucose 174 H 159 H (70-105) 11/03/17 11/03/17 11/03/17 Range/Units 01:07 02:07 03:20 MCV (84-94) fl RDW (13.2-15.2) % Chloride (98-107) mmol/L Carbon Dioxide (22-30) mmol/L Glucose (75-100) mg/dL POC Glucose 157 H 160 H 161 H (70-105) 11/03/17 11/03/17 11/03/17 Range/Units 04:12 04:14 04:14 MCV 96 H (84-94) fl RDW 13.0 L (13.2-15.2) % Chloride (98-107) mmol/L Carbon Dioxide (22-30) mmol/L Glucose 147 H (75-100) mg/dL POC Glucose 166 H (70-105) 11/03/17 11/03/17 Range/Units 05:30 06:53 MCV (84-94) fl RDW (13.2-15.2) % Chloride (98-107) mmol/L Carbon Dioxide (22-30) mmol/L Glucose (75-100) mg/dL POC Glucose 189 H 162 H (70-105)
[2017-11-03] MEDS ORDERED: LEVEMIR SUB-Q SCH (12:00)
[2017-11-03] MEDS: D5W 1,000 ML IV SCH (12:31)
[2017-11-03] MEDS: NOVOLOG SUB-Q SCH ×3 (12:31→22:48)
--- NOTE | 2017-11-03 17:07 | Progress Note ---
Assessment and Plan Assessment and plan: Patient is a 32-year-old man with past medical history of DM who presents with AMS/paranoid/delusional. Psychotic Episode 1013 and mental health consults Acute kidney injury/vasomotor nephropathy Resolved DKA Resolved okay to transfer out of the ICU per customs patrol officer Metabolic Acidosis Due to DKA and starvation ketoacidosis and LA Hypernatremia Resolved Dehydration Resolved Mixed Acidosis also due to Lactic acidosis infection workup is negative, continue IVF Metabolic encephalopathy Was due to DKA, appears to be resolving now. Now patient appears to be quite psychotic. He is threatening to sign out AMA leave the hospital, so he was placed under 1013. unfortunately, no drug screen/toxicology screen was done on admission. Type 1 diabetes mellitus Add SSI, ADA diet History Interval history: Patient was seen and examined. Follow-up on current diagnosis. Overnight uneventful. Patient denies any chest pain, shortness breath, nausea/vomiting or severe headaches. Imaging, nursing note, chart, labs and old chart reviewed. Discussed with patient. Hospitalist Physical - Physical exam Narrative exam: GEN: WDWN, NAD, AWAKE, ALERT, ORIENTATED 3 HEENT: NCAT, EOMI, PERRL, OP Clear NECK: supple, no adenopathy, no thyromegaly, no JVD CVS/HEART: RRR, NORMAL S1S2, NO JVD, pulses present bilaterally CHEST/LUNGS: CTA B, Symmetrical chest expansion, good air entry bilaterally GI/Abdomen: soft, NTND, good bowel sounds, no guarding or rebound /Bladder: no suprapubic tenderness, no CVA or paraspinal tenderness EXT/Skin: no c/c/e, no obvious rash MSK: FROM x 4 Neuro: CN 2-12 grossly intact, no new focal deficits Psych: calm - Constitutional Vitals: Temp Pulse Resp BP Pulse Ox 99.0 F 76 12 136/84 99 11/03/17 16:00 11/03/17 16:00 11/03/17 16:00 11/03/17 16:00 11/03/17 16:00 General appearance: Present: no acute distress Results - Labs CBC & Chem 7: 11/03/17 04:14 11/03/17 04:14 Labs: Laboratory Last Values WBC 10.3 K/mm3 (4.5-11.0) 11/03/17 04:14 RBC 4.31 M/mm3 (3.65-5.03) 11/03/17 04:14 Hgb 13.9 gm/dl (11.8-15.2) 11/03/17 04:14 Hct 41.4 % (35.5-45.6) 11/03/17 04:14 MCV 96 fl (84-94) H 11/03/17 04:14 MCH 32 pg (28-32) 11/03/17 04:14 MCHC 34 % (32-34) 11/03/17 04:14 RDW 13.0 % (13.2-15.2) L 11/03/17 04:14 Plt Count 198 K/mm3 (140-440) 11/03/17 04:14 Add Manual Diff Complete 11/01/17 01:19 Total Counted 100 11/01/17 01:19 Seg Neuts % (Manual) 88.0 % (40.0-70.0) H 11/01/17 01:19 Band Neutrophils % 0 % 11/01/17 01:19 Lymphocytes % (Manual) 7.0 % (13.4-35.0) L 11/01/17 01:19 Reactive Lymphs % (Man) 0 % 11/01/17 01:19 Monocytes % (Manual) 5.0 % (0.0-7.3) 11/01/17 01:19 Eosinophils % (Manual) 0 % (0.0-4.3) 11/01/17 01:19 Basophils % (Manual) 0 % (0.0-1.8) 11/01/17 01:19 Metamyelocytes % 0 % 11/01/17 01:19 Myelocytes % 0 % 11/01/17 01:19 Promyelocytes % 0 % 11/01/17 01:19 Blast Cells % 0 % 11/01/17 01:19 Nucleated RBC % Not Reportable 11/01/17 01:19 Seg Neutrophils # Man 18.7 K/mm3 (1.8-7.7) H 11/01/17 01:19 Band Neutrophils # 0.0 K/mm3 11/01/17 01:19 Lymphocytes # (Manual) 1.5 K/mm3 (1.2-5.4) 11/01/17 01:19 Abs React Lymphs (Man) 0.0 K/mm3 11/01/17 01:19 Monocytes # (Manual) 1.1 K/mm3 (0.0-0.8) H 11/01/17 01:19 Eosinophils # (Manual) 0.0 K/mm3 (0.0-0.4) 11/01/17 01:19 Basophils # (Manual) 0.0 K/mm3 (0.0-0.1) 11/01/17 01:19 Metamyelocytes # 0.0 K/mm3 11/01/17 01:19 Myelocytes # 0.0 K/mm3 11/01/17 01:19 Promyelocytes # 0.0 K/mm3 11/01/17 01:19 Blast Cells # 0.0 K/mm3 11/01/17 01:19 WBC Morphology Not Reportable 11/01/17 01:19 Hypersegmented Neuts Not Reportable 11/01/17 01:19 Hyposegmented Neuts Not Reportable 11/01/17 01:19 Hypogranular Neuts Not Reportable 11/01/17 01:19 Smudge Cells Not Reportable 11/01/17 01:19 Toxic Granulation Not Reportable 11/01/17 01:19 Toxic Vacuolation Not Reportable 11/01/17 01:19 Dohle Bodies Not Reportable 11/01/17 01:19 Pelger-Huet Anomaly Not Reportable 11/01/17 01:19 Rick Rods Not Reportable 11/01/17 01:19 Platelet Estimate Consistent w auto 11/01/17 01:19 Clumped Platelets Not Reportable 11/01/17 01:19 Plt Clumps, EDTA Not Reportable 11/01/17 01:19 Large Platelets Not Reportable 11/01/17 01:19 Giant Platelets Not Reportable 11/01/17 01:19 Platelet Satelliting Not Reportable 11/01/17 01:19 Plt Morphology Comment Not Reportable 11/01/17 01:19 RBC Morphology Not Reportable 11/01/17 01:19 Dimorphic RBCs Not Reportable 11/01/17 01:19 Polychromasia Not Reportable 11/01/17 01:19 Hypochromasia Not Reportable 11/01/17 01:19 Poikilocytosis Not Reportable 11/01/17 01:19 Anisocytosis Not Reportable 11/01/17 01:19 Microcytosis Not Reportable 11/01/17 01:19 Macrocytosis Few 11/01/17 01:19 Spherocytes Not Reportable 11/01/17 01:19 Pappenheimer Bodies Not Reportable 11/01/17 01:19 Sickle Cells Not Reportable 11/01/17 01:19 Target Cells Not Reportable 11/01/17 01:19 Tear Drop Cells Not Reportable 11/01/17 01:19 Ovalocytes Not Reportable 11/01/17 01:19 Helmet Cells Not Reportable 11/01/17 01:19 Ruiz-[place] Bodies Not Reportable 11/01/17 01:19 [place] Rings Not Reportable 11/01/17 01:19 Harvey Cells Not Reportable 11/01/17 01:19 Bite Cells Not Reportable 11/01/17 01:19 Crenated Cell Not Reportable 11/01/17 01:19 Elliptocytes Not Reportable 11/01/17 01:19 Acanthocytes (Spur) Not Reportable 11/01/17 01:19 Rouleaux Not Reportable 11/01/17 01:19 Hemoglobin C Crystals Not Reportable 11/01/17 01:19 Schistocytes Not Reportable 11/01/17 01:19 Malaria parasites Not Reportable 11/01/17 01:19 Gaurang Bodies Not Reportable 11/01/17 01:19 Hem Pathologist Commnt No 11/01/17 01:19 VBG pH 7.230 (7.320-7.420) L 11/01/17 01:19 Sodium 139 mmol/L (137-145) 11/03/17 04:14 Potassium 3.9 mmol/L (3.6-5.0) 11/03/17 04:14 Chloride 98.3 mmol/L (98-107) 11/03/17 04:14 Carbon Dioxide 22 mmol/L (22-30) 11/03/17 04:14 Anion Gap 23 mmol/L 11/03/17 04:14 BUN 11 mg/dL (9-20) 11/03/17 04:14 Creatinine 1.2 mg/dL (0.8-1.5) 11/03/17 04:14 Estimated GFR > 60 ml/min 11/03/17 04:14 BUN/Creatinine Ratio 9 % 11/03/17 04:14 Glucose 147 mg/dL (75-100) H 11/03/17 04:14 POC Glucose 158 (70-105) H 11/03/17 16:05 Hemoglobin A1c 9.0 % (4-6) H 11/01/17 07:26 Lactic Acid 3.90 mmol/L (0.7-2.0) H* 11/01/17 05:05 Calcium 8.8 mg/dL (8.4-10.2) 11/03/17 04:14 Phosphorus 5.10 mg/dL (2.5-4.5) H 11/01/17 05:05 Magnesium 2.10 mg/dL (1.7-2.3) 11/01/17 05:05 Troponin T < 0.010 ng/mL (0.00-0.029) 11/01/17 05:05 Urine Color Straw (Yellow) 11/01/17 02:50 Urine Turbidity Clear (Clear) 11/01/17 02:50 Urine pH 5.0 (5.0-7.0) 11/01/17 02:50 Ur Specific [place] 1.013 (1.003-1.030) 11/01/17 02:50 Urine Protein <15 mg/dl mg/dL (Negative) 11/01/17 02:50 Urine Glucose (UA) >=500 mg/dL (Negative) 11/01/17 02:50 Urine Ketones 80 mg/dL (Negative) 11/01/17 02:50 Urine Blood Neg (Negative) 11/01/17 02:50 Urine Nitrite Neg (Negative) 11/01/17 02:50 Urine Bilirubin Neg (Negative) 11/01/17 02:50 Urine Urobilinogen < 2.0 mg/dL (<2.0) 11/01/17 02:50 Ur Leukocyte Esterase Neg (Negative) 11/01/17 02:50 Urine WBC (Auto) < 1.0 /HPF (0.0-6.0) 11/01/17 02:50 Urine RBC (Auto) < 1.0 /HPF (0.0-6.0) 11/01/17 02:50 Urine Mucus Few /HPF 11/01/17 02:50
[2017-11-03] MEDS ORDERED: D50W (25GM) Syringe IV PRN (18:45)
[2017-11-03] MEDS ORDERED: REGLAN IV PRN (18:45)
[2017-11-04] MEDS ORDERED: D50W (25GM) Syringe IV PRN (10:55)
[2017-11-04] MEDS: NOVOLOG SUB-Q SCH ×3 (12:11→21:42)
[2017-11-04 12:56] LABS: Anion Gap 30 mmol/L; BUN/Creatinine Ratio 14; Blood Urea Nitrogen 14 mg/dL (9-20); Calcium 8.9 mg/dL (8.4-10.2); Carbon Dioxide 17 mmol/L (22-30); Glucose 450 mg/dL (75-100); Sodium 135 mmol/L (137-145)
[2017-11-04 13:14] LABS: Potassium 5.2 mmol/L (3.6-5.0)
--- NOTE | 2017-11-04 13:54 | Progress Note ---
Assessment and Plan Assessment and plan: Patient is a 32-year-old man with past medical history of DM who presents with AMS/paranoid/delusional. Psychotic Episode mental health to see Acute kidney injury/vasomotor nephropathy DKA okay to transfer out of the ICU per line service supervisor Metabolic Acidosis Due to DKA and starvation ketoacidosis and LA Hypernatremia Resolved Dehydration Resolved Mixed Acidosis also due to Lactic acidosis infection workup is negative, continue IVF Metabolic encephalopathy Was due to DKA, appears to be resolving now. Now patient appears to be quite psychotic. He is threatening to sign out AMA leave the hospital, so he was placed under 1013. unfortunately, no drug screen/toxicology screen was done on admission. Type 1 diabetes mellitus Add SSI, ADA diet yesterday, transfer orders were not continued; so hyperglycemia, acidosis, mild hyperkalemia returned. Will give more insulin patient admits to not taking insulin d/w mental health also, Dr. Shauna Montero will see and determine if 1013 is warranted. History Interval history: Patient was seen and examined. Follow-up on current diagnosis. Overnight uneventful. Patient denies any chest pain, shortness breath, nausea/vomiting or severe headaches. Imaging, nursing note, chart, labs and old chart reviewed. Discussed with patient. Hospitalist Physical - Physical exam Narrative exam: GEN: WDWN, NAD, AWAKE, ALERT, ORIENTATED 3 HEENT: NCAT, EOMI, PERRL, OP Clear NECK: supple, no adenopathy, no thyromegaly, no JVD CVS/HEART: RRR, NORMAL S1S2, NO JVD, pulses present bilaterally CHEST/LUNGS: CTA B, Symmetrical chest expansion, good air entry bilaterally GI/Abdomen: soft, NTND, good bowel sounds, no guarding or rebound /Bladder: no suprapubic tenderness, no CVA or paraspinal tenderness EXT/Skin: no c/c/e, no obvious rash MSK: FROM x 4 Neuro: CN 2-12 grossly intact, no new focal deficits Psych: calm - Constitutional Vitals: Temp Pulse Resp BP Pulse Ox 97.5 F L 85 18 119/73 94 11/04/17 07:23 11/04/17 07:23 11/04/17 07:23 11/04/17 07:23 11/04/17 07:23 General appearance: Present: no acute distress Results - Labs CBC & Chem 7: 11/03/17 04:14 11/04/17 12:14 Labs: Laboratory Last Values WBC 10.3 K/mm3 (4.5-11.0) 11/03/17 04:14 RBC 4.31 M/mm3 (3.65-5.03) 11/03/17 04:14 Hgb 13.9 gm/dl (11.8-15.2) 11/03/17 04:14 Hct 41.4 % (35.5-45.6) 11/03/17 04:14 MCV 96 fl (84-94) H 11/03/17 04:14 MCH 32 pg (28-32) 11/03/17 04:14 MCHC 34 % (32-34) 11/03/17 04:14 RDW 13.0 % (13.2-15.2) L 11/03/17 04:14 Plt Count 198 K/mm3 (140-440) 11/03/17 04:14 Add Manual Diff Complete 11/01/17 01:19 Total Counted 100 11/01/17 01:19 Seg Neuts % (Manual) 88.0 % (40.0-70.0) H 11/01/17 01:19 Band Neutrophils % 0 % 11/01/17 01:19 Lymphocytes % (Manual) 7.0 % (13.4-35.0) L 11/01/17 01:19 Reactive Lymphs % (Man) 0 % 11/01/17 01:19 Monocytes % (Manual) 5.0 % (0.0-7.3) 11/01/17 01:19 Eosinophils % (Manual) 0 % (0.0-4.3) 11/01/17 01:19 Basophils % (Manual) 0 % (0.0-1.8) 11/01/17 01:19 Metamyelocytes % 0 % 11/01/17 01:19 Myelocytes % 0 % 11/01/17 01:19 Promyelocytes % 0 % 11/01/17 01:19 Blast Cells % 0 % 11/01/17 01:19 Nucleated RBC % Not Reportable 11/01/17 01:19 Seg Neutrophils # Man 18.7 K/mm3 (1.8-7.7) H 11/01/17 01:19 Band Neutrophils # 0.0 K/mm3 11/01/17 01:19 Lymphocytes # (Manual) 1.5 K/mm3 (1.2-5.4) 11/01/17 01:19 Abs React Lymphs (Man) 0.0 K/mm3 11/01/17 01:19 Monocytes # (Manual) 1.1 K/mm3 (0.0-0.8) H 11/01/17 01:19 Eosinophils # (Manual) 0.0 K/mm3 (0.0-0.4) 11/01/17 01:19 Basophils # (Manual) 0.0 K/mm3 (0.0-0.1) 11/01/17 01:19 Metamyelocytes # 0.0 K/mm3 11/01/17 01:19 Myelocytes # 0.0 K/mm3 11/01/17 01:19 Promyelocytes # 0.0 K/mm3 11/01/17 01:19 Blast Cells # 0.0 K/mm3 11/01/17 01:19 WBC Morphology Not Reportable 11/01/17 01:19 Hypersegmented Neuts Not Reportable 11/01/17 01:19 Hyposegmented Neuts Not Reportable 11/01/17 01:19 Hypogranular Neuts Not Reportable 11/01/17 01:19 Smudge Cells Not Reportable 11/01/17 01:19 Toxic Granulation Not Reportable 11/01/17 01:19 Toxic Vacuolation Not Reportable 11/01/17 01:19 Dohle Bodies Not Reportable 11/01/17 01:19 Pelger-Huet Anomaly Not Reportable 11/01/17 01:19 Rick Rods Not Reportable 11/01/17 01:19 Platelet Estimate Consistent w auto 11/01/17 01:19 Clumped Platelets Not Reportable 11/01/17 01:19 Plt Clumps, EDTA Not Reportable 11/01/17 01:19 Large Platelets Not Reportable 11/01/17 01:19 Giant Platelets Not Reportable 11/01/17 01:19 Platelet Satelliting Not Reportable 11/01/17 01:19 Plt Morphology Comment Not Reportable 11/01/17 01:19 RBC Morphology Not Reportable 11/01/17 01:19 Dimorphic RBCs Not Reportable 11/01/17 01:19 Polychromasia Not Reportable 11/01/17 01:19 Hypochromasia Not Reportable 11/01/17 01:19 Poikilocytosis Not Reportable 11/01/17 01:19 Anisocytosis Not Reportable 11/01/17 01:19 Microcytosis Not Reportable 11/01/17 01:19 Macrocytosis Few 11/01/17 01:19 Spherocytes Not Reportable 11/01/17 01:19 Pappenheimer Bodies Not Reportable 11/01/17 01:19 Sickle Cells Not Reportable 11/01/17 01:19 Target Cells Not Reportable 11/01/17 01:19 Tear Drop Cells Not Reportable 11/01/17 01:19 Ovalocytes Not Reportable 11/01/17 01:19 Helmet Cells Not Reportable 11/01/17 01:19 Ruiz-[place]aca Bodies Not Reportable 11/01/17 01:19 [place] Rings Not Reportable 11/01/17 01:19 Harvey Cells Not Reportable 11/01/17 01:19 Bite Cells Not Reportable 11/01/17 01:19 Crenated Cell Not Reportable 11/01/17 01:19 Elliptocytes Not Reportable 11/01/17 01:19 Acanthocytes (Spur) Not Reportable 11/01/17 01:19 Rouleaux Not Reportable 11/01/17 01:19 Hemoglobin C Crystals Not Reportable 11/01/17 01:19 Schistocytes Not Reportable 11/01/17 01:19 Malaria parasites Not Reportable 11/01/17 01:19 Gaurang Bodies Not Reportable 11/01/17 01:19 Hem Pathologist Commnt No 11/01/17 01:19 VBG pH 7.230 (7.320-7.420) L 11/01/17 01:19 Sodium 135 mmol/L (137-145) L 11/04/17 12:14 Potassium 5.2 mmol/L (3.6-5.0) H D 11/04/17 12:14 Chloride 93.0 mmol/L (98-107) L 11/04/17 12:14 Carbon Dioxide 17 mmol/L (22-30) L 11/04/17 12:14 Anion Gap 30 mmol/L 11/04/17 12:14 BUN 14 mg/dL (9-20) 11/04/17 12:14 Creatinine 1.0 mg/dL (0.8-1.5) 11/04/17 12:14 Estimated GFR > 60 ml/min 11/04/17 12:14 BUN/Creatinine Ratio 14 % 11/04/17 12:14 Glucose 450 mg/dL (75-100) H 11/04/17 12:14 POC Glucose 336 (70-105) H 11/04/17 10:54 Hemoglobin A1c 9.0 % (4-6) H 11/01/17 07:26 Lactic Acid 3.90 mmol/L (0.7-2.0) H* 11/01/17 05:05 Calcium 8.9 mg/dL (8.4-10.2) 11/04/17 12:14 Phosphorus 5.10 mg/dL (2.5-4.5) H 11/01/17 05:05 Magnesium 2.10 mg/dL (1.7-2.3) 11/01/17 05:05 Troponin T < 0.010 ng/mL (0.00-0.029) 11/01/17 05:05 Urine Color Straw (Yellow) 11/01/17 02:50 Urine Turbidity Clear (Clear) 11/01/17 02:50 Urine pH 5.0 (5.0-7.0) 11/01/17 02:50 Ur Specific [place] 1.013 (1.003-1.030) 11/01/17 02:50 Urine Protein <15 mg/dl mg/dL (Negative) 11/01/17 02:50 Urine Glucose (UA) >=500 mg/dL (Negative) 11/01/17 02:50 Urine Ketones 80 mg/dL (Negative) 11/01/17 02:50 Urine Blood Neg (Negative) 11/01/17 02:50 Urine Nitrite Neg (Negative) 11/01/17 02:50 Urine Bilirubin Neg (Negative) 11/01/17 02:50 Urine Urobilinogen < 2.0 mg/dL (<2.0) 11/01/17 02:50 Ur Leukocyte Esterase Neg (Negative) 11/01/17 02:50 Urine WBC (Auto) < 1.0 /HPF (0.0-6.0) 11/01/17 02:50 Urine RBC (Auto) < 1.0 /HPF (0.0-6.0) 11/01/17 02:50 Urine Mucus Few /HPF 11/01/17 02:50
[2017-11-04] MEDS ORDERED: LEVEMIR SUB-Q ONE (15:00)
--- NOTE | 2017-11-04 16:40 | Consultation ---
History of Present Illness - Reason for Consult Consult date: 11/04/17 Reason for consult: Mental Health Evaluation Requesting physician: REBECCA CALHOUN - Chief Complaint Chief complaint: "I am okay" - History of Present Psychiatric Illness Patient is 32 years old male history of insulin-dependent diabetes presented today with hyperglycemia. Psychiatry was consulted to see patient because of possible psychosis. Today patient is calm and cooperative during the assessment. He stated that he ran out of insulin prior to his admission to the hospital. He stated having an issue with his insurance so he could not purchase the insulin. He stated that he was going to get insulin OTC if possible. Per the patient, he was fasting and thought he didn't need insulin during that time because he was not eating. He stated that he did make a statement about not eating a couple days ago, because the "lord" told him not to at that time. He denies having a problem with eating. He is aware of the ramification if he does not take insulin when indicated. Per collateral from his spouse Khushbu Hollingsworth, the patient does not have a mental health dx. She stated that her is "very rastafari" and strive to have his own mu-ism. She denies any suicidal statements or suicide attempts by her in the past. The patient denies SI /HI's and AVH's. He denies sleep disturbance. He denies recreational drug use and alcohol consumption (etoh). Medications and Allergies Allergies Allergy/AdvReac Type Severity Reaction Status Date / Time No Known Allergies Allergy Verified 11/01/17 01:05 Home Medications Medication Instructions Recorded Confirmed Last Taken Type Insulin Glargine,Hum.rec.anlog 20 units SQ HS MDD 20 11/04/17 11/04/17 05/27/17 History [Lantus] 20 Insulin NPH, Human 10 units SQ TID MDD 10 11/04/17 11/04/17 05/27/17 History 10 Active Meds: Active Medications Dextrose (D50w (25gm) Syringe) 50 ml IV PRN PRN PRN Reason: Hypoglycemia Insulin Aspart (Novolog) 0 units SUB-Q [facility] PRN Reason: Protocol Last Admin: 11/04/17 12:11 Dose: 8 units Insulin [facility]em[facility] ([facility]) [facility] Past psychiatric history - Past Medical History Past Medical History: diabetes Past Surgical History: No surgical history - past Psychiatric treatment and history psychiatric treatment history: Denies a psy hx and a fam psy hx. - Social History Social history: lives with family Mental Status Exam - Vital signs Last Vital Signs Temp 97.5 F L 11/04/17 07:23 Pulse 85 11/04/17 07:23 Resp 18 11/04/17 07:23 BP 119/73 11/04/17 07:23 Pulse Ox 94 11/04/17 07:23 - Exam Narrative exam: MSE: Appearance: calm, cooperative Behavior: regular eye contact Speech: regular rate and tone Mood: "okay" Affect: congruent to mood Thought Process: linear Thought Content: denies SI/HI's and AVH's Motor Activity: sitting up in bed Cognition: A/Ox3 Insight: appropriate Judgment: appropriate Results Result Diagrams: 11/05/17 04:12 11/05/17 04:12 Abnormal lab results 11/03/17 11/03/17 11/03/17 Range/Units 09:00 09:57 10:59 Sodium (137-145) mmol/L Potassium (3.6-5.0) mmol/L Chloride (98-107) mmol/L Carbon Dioxide (22-30) mmol/L Glucose (75-100) mg/dL POC Glucose 170 H 151 H 136 H (70-105) 11/03/17 11/03/17 11/03/17 Range/Units 12:03 13:06 14:04 Sodium (137-145) mmol/L Potassium (3.6-5.0) mmol/L Chloride (98-107) mmol/L Carbon Dioxide (22-30) mmol/L Glucose (75-100) mg/dL POC Glucose 155 H 143 H 141 H (70-105) 11/03/17 11/04/17 11/04/17 Range/Units 22:47 05:50 10:54 Sodium (137-145) mmol/L Potassium (3.6-5.0) mmol/L Chloride (98-107) mmol/L Carbon Dioxide (22-30) mmol/L Glucose (75-100) mg/dL POC Glucose 352 H 295 H 336 H (70-105) 11/04/17 11/04/17 Range/Units 12:14 15:11 Sodium 135 L (137-145) mmol/L Potassium 5.2 H D (3.6-5.0) mmol/L Chloride 93.0 L (98-107) mmol/L Carbon Dioxide 17 L (22-30) mmol/L Glucose 450 H (75-100) mg/dL POC Glucose 294 H (70-105) All other labs normal. Assessment and Plan Assessment and plan: Impression: No overt psychosis by the patient. Today patient is calm and cooperative during the assessment. Per the patient, he is a Amish and fasting is part of rastafari practice. The patient is aware of the importance of nutritional intake. Also, he is aware of the importance of insulin administration (when indicated) during his fasting period. Patient is no threat to self. Recommendation/Plan: Rescind 1013, patient does not meet criteria.
[2017-11-04 18:19] LABS: Anion Gap 28 mmol/L; BUN/Creatinine Ratio 14; Blood Urea Nitrogen 15 mg/dL (9-20); Carbon Dioxide 19 mmol/L (22-30); Chloride 92.6 mmol/L (98-107); Glucose 391 mg/dL (75-100); Potassium 4.3 mmol/L (3.6-5.0); Sodium 135 mmol/L (137-145)
[2017-11-04] MEDS ORDERED: LEVEMIR SUB-Q SCH (22:00)
[2017-11-05 05:23] LABS: Hematocrit 43.1 % (35.5-45.6); Hemoglobin 14.8 gm/dl (11.8-15.2); Mean Corpuscular HGB Conc 34 % (32-34); Mean Corpuscular Hemoglobin 33 pg (28-32); Mean Corpuscular Volume 95 fl (84-94); Platelet Count 185 K/mm3 (140-440); Red Blood Count 4.56 M/mm3 (3.65-5.03); Red Cell Distribution Width 12.4 % (13.2-15.2)
[2017-11-05 05:47] LABS: BUN/Creatinine Ratio 14; Blood Urea Nitrogen 14 mg/dL (9-20); Carbon Dioxide 26 mmol/L (22-30); Chloride 99.7 mmol/L (98-107); Glucose 90 mg/dL (75-100); Potassium 3.6 mmol/L (3.6-5.0); Sodium 141 mmol/L (137-145)
[2017-11-05 05:49] LABS: Anion Gap 19 mmol/L
[2017-11-05] MEDS: NOVOLOG SUB-Q SCH ×2 (07:26→07:30)
[2017-11-05 09:09] VITALS: BP 110/61
--- NOTE | 2017-11-05 09:24 | Discharge Summary ---
Providers - Providers Date of Admission: 11/01/17 05:34 Date of discharge: 11/05/17 Attending physician: BARBARA WALSH 11/01/17 05:34 Consult to Physician [CONS] Routine Consulting Provider: JOSE WHITMORE Reason For Exam: cc Place consult to:: Dr. Whitmore Notified:: Answering Service Phone number called:: [phone] 11/01/17 14:39 Consult to Mental Health [CONS] Routine Reason For Exam: behavioral disturbance Place consult to:: psdelmi Notified:: yes Was contact made?: Yes If yes, spoke with:: Kasey Primary care physician: SAND DIGGER Hospitalization Condition: Stable Hospital course: Patient is a 32-year-old man with past medical history of DM who presents with AMS Psychotic Episode due to DKA with encephalopathy Acute kidney injury/vasomotor nephropathy DKA Metabolic Acidosis Hypernatremia Dehydration Acute Metabolic encephalopathy Type 1 diabetes mellitus Hyperkalemia Extensive DM education done, but patient is really not receptive Disposition: DC-01 TO HOME OR SELFCARE Time spent for discharge: 39 minutes Core Measure Documentation - Palliative Care Palliative Care/ Comfort Measures: Not Applicable - Core Measures Any of the following diagnoses?: none - VTE Discharge Requirements Deep Vein Thrombosis/Pulmonary Embolism Present on Admission: No Has pt received <5 days of overlap therapy or INR<2.0: No Anticoagulant overlap therapy prescribed at discharge: No Contraindication No Overlap Therapy order at DC: Not Indicated Exam - Physical Exam Narrative exam: GEN: WDWN, NAD, AWAKE, ALERT, ORIENTATED 3 HEENT: NCAT, EOMI, PERRL, OP Clear NECK: supple, no adenopathy, no thyromegaly, no JVD CVS/HEART: RRR, NORMAL S1S2, NO JVD, pulses present bilaterally CHEST/LUNGS: CTA B, Symmetrical chest expansion, good air entry bilaterally GI/Abdomen: soft, NTND, good bowel sounds, no guarding or rebound /Bladder: no suprapubic tenderness, no CVA or paraspinal tenderness EXT/Skin: no c/c/e, no obvious rash MSK: FROM x 4 Neuro: CN 2-12 grossly intact, no new focal deficits Psych: calm - Constitutional Vitals: Temp Pulse Resp BP Pulse Ox 97.6 F 90 18 110/61 94 11/05/17 07:31 11/05/17 07:31 11/05/17 07:31 11/05/17 07:31 11/05/17 07:31 Plan Activity: other (no strenous activity until cleared by pcp) Diet: diabetic Special Instructions: record blood sugar diary (before meals) Follow up with: PRIMARY CARE,MD [Primary Care Provider] - 3-5 Days Prescriptions: Insulin Detemir [Levemir] 8 units SUB-Q [facility] #30 day Insulin Aspart [Novolog] 1 dose SQ AC PRN #30 day PRN Reason: Hyperglycemia
== END 2017-11-05 11:30 | disposition home or self-care (01) | DRG 637 ==
LOC: ED 00:52 → CC1 05:34 → 3A 11-03 18:43 → UNDODISIN 11-03 22:00
PROVIDERS: ADMIT Internal Medicine; ATTEND Internal Medicine
PROC: 3E0234Z Introduction of Serum, Toxoid and Vaccine into Muscle, Percutaneous Approach (ICD-10-PCS; principal; 2017-11-02)
DX: E10.10 Type 1 diabetes mellitus with ketoacidosis without coma (principal); N17.0 Acute kidney failure with tubular necrosis; G93.41 Metabolic encephalopathy; E87.0 Hyperosmolality and hypernatremia; R65.10 Systemic inflammatory response syndrome (SIRS) of non-infectious origin without acute organ dysfunction; F23 Brief psychotic disorder; E87.5 Hyperkalemia; E86.0 Dehydration; Z83.3 Family history of diabetes mellitus; Z91.19 Patient's noncompliance with other medical treatment and regimen; Z23 Encounter for immunization
CPT/HCPCS: 36415; 71010; 74176; 80048; 81001; 82140; 82805; 82962; 83036; 83735; 84100; 84484; 85007; 85025; 85027; 87040; 90686; 93005; 93010; 96361; 96365; 96366; 96367; 96375; J1650; J1815; J1818; J2543; J2765; J7030; J7070